=== PATIENT | female | born 1995 | race Caucasian/White ===

== ENCOUNTER 2020-02-09 18:40 | Emergency (ER) | payer MEDICAID, SELFPAY ==
[2020-02-09 18:54] VITALS: BP 128/102; PULSE 109; RESP 19; TEMP 36.8; O2SAT 98; BMI 25.9
[2020-02-09 19:05] VITALS: BP 128/102; PULSE 109; RESP 18; TEMP 36.8; O2SAT 98
--- NOTE | 2020-02-09 19:26 | PC.NURSE ---
Report received. PT is sitting in her room quietly. Waiting for disposition.
[2020-02-09 19:49] LABS: Amphetamine Screen Urine Not Detected (Not Detect); Barbiturates, Urine Not Detected (Not Detect); Benzodiazepines Screen Urine Not Detected (Not Detect); Cannabinoid Screen Urine POSITIVE (Not Detect); Cocaine Screen Urine Not Detected (Not Detect); Opiate Screen Urine POSITIVE (Not Detect); Phencyclidine Screen Urine Not Detected (Not Detect)
[2020-02-09 19:52] LABS: UPreg QC Valid YES; Urine Pregnancy NEGATIVE (NEGATIVE)
--- NOTE | 2020-02-09 20:19 | ED.PSYCH ---
HPI - Psych General Chief Complaint: Psychiatric Symptoms Stated Complaint: CRISIS,+SI NO PLAN Time Seen by Provider: 02/09/20 20:26 Source: patient Mode of arrival: EMS Limitations: no limitations History of Present Illness HPI Narrative: patient was brought in due to making SI statement was arguing with mother. Patient states he made statements of SI at her mother just to get her attention. Patient knew it would upset mother. Patient states she has no plan to kill herself. Patient denies ever trying to kill herself in the past. Patient states he is on methadone and attempted to detox herself. Patient last took methadone 2 days ago. Patient requesting Ativan. Related Data Allergies Allergy/AdvReac Type Severity Reaction Status Date / Time No Known Allergies Allergy Unverified 12/17/19 19:30 [No Known Allergies*] Review of Systems Review of Systems: Yes all other systems are reviewed and are negative Constitutional: Constitutional: Reports as per HPI and Reports no additional constitutional complaints Eyes: Eyes: Reports as per HPI and Reports no additional eye complaints ENT: Reports system reviewed and no additional complaints, except as documented and Reports as per HPI Cardiovascular: Cardiovascular: Reports as per HPI and Reports no additional cardiovascular complaints Respiratory: Respiratory: Reports as per HPI and Reports no additional respiratory complaints Gastrointestinal: Gastrointestinal: Reports as per HPI and Reports no additional gastrointestinal complaints Musculoskeletal: Musculoskeletal: Reports no additional musculoskeletal complaints and Reports as per HPI Neurologic: Reports system reviewed and no additional complaints, except as documented and Reports as per HPI Psychiatric: Psychiatric: Reports no additional psychiatric complaints and Reports as per HPI [facility] Past Medical History Medical History (Updated 02/10/20 @ 00:21 by Background Daemon) Asthma Low thyroid stimulating hormone (TSH) level Social History Social History Alcohol intake: former Smoking Status: Former smoker Smoked in Last 30 Days: No Use of substances other than those prescribed or required for medical reasons: Yes Substance Use Type: Heroin Last Used Substance: Days (ago) Any prior treatment program specific to substance use: Yes Advance Directives: No Advance Directives Information Provided: Yes Physical Exam Vital Signs: Vital Signs: Last Vital Signs Temp 98.3 F 02/09/20 19:05 Pulse 109 H 02/09/20 19:05 Resp 18 02/09/20 19:05 BP 128/102 H 02/09/20 19:05 Pulse Ox 98 02/09/20 19:05 Body Mass Index 25.9 Const: General: cooperative, healthy appearing, comfortable, no acute distress, well developed, alert, awake and Physically active Orientation/consciousness: patient oriented x3 HENMT: Head: Yes normal to inspection and Yes No palpable skull fracture present Eyes: General: appearance normal, both eyes and all related structures Visual Pulido: normal visual pulido by confrontation Neck: Neck: Yes normal visual inspection, Yes full ROM, Yes no lymphadenopathy, Yes no meningeal signs and Yes trachea midline Chest: Chest palpation & inspection: normal inspection of the chest, normal palpation of entire chest wall and no localized rib tenderness Resp: Effort & Inspection: normal respiratory effort and able to speak in complete sentences Auscultation: clear to auscultation bilaterally, no crackles, no rales, no rhonchi, no wheezes and breath sounds present Cardio: Jugular venous distension: no JVD Heart sounds: S1 normal heart sound present and S2 normal heart sound present GI: Inspection: Yes normal to inspection and No abdominal wall ecchymosis Palpation (GI): Soft to palpation, not firm, nontender, no guarding and not rigid : General: No CVA tenderness and Yes no CVA tenderness Back/Spine/Pelvis: Back: no CVA tenderness, No CVA tenderness and No back tenderness Skin: General skin exam: no rashes or lesions noted Trauma: no lacerations or abrasions Neuro: General: patient oriented x3, gait normal, no meningeal signs and CN's II-XI intact bilaterally Cranial nerves: Yes CN's II-XII intact bilaterally Extrem: General: Yes normal to inspection and Yes full ROM Psych: Other: Patient denies any suicidal ideation. Appearance: grossly normal, well kempt and not disheveled Course Course Course Narrative: Patient will be evaluated by Care Team insurance consultant for screening. I do not believe patient is a harm to herself. Willing to U tox and re-evaluate after seen by care team Reevaluation(s) Reevaluation #1: Patient seen by Tatum from physician primary care sports medicine who who evaluated patient. She also agreed that patient is safe to be discharged. She also states patient denies any suicidal or homicidal ideation. She states patient has good follow-up. Patient has appoint with his psychiatrist and therapist this upcoming Saturday and is compliant with her meds. Patient has good support at home. Time: 21:35 MDM - Psych MDM Narrative Medical decision making narrative: emotional outburst. Anxiety Lab Data Labs: Lab Results 02/09/20 02/09/20 Range/Units 19:10 19:10 Urine Test NEGATIVE (NEGATIVE) Urine Opiates Screen POSITIVE H (Not Detect) Ur Barbiturates Screen Not Detected (Not Detect) Ur Phencyclidine Scrn Not Detected (Not Detect) Ur Amphetamines Screen Not Detected (Not Detect) U Benzodiazepines Scrn Not Detected (Not Detect) Urine Cocaine Screen Not Detected (Not Detect) U Marijuana (THC) Screen POSITIVE H (Not Detect) Discharge Plan Discharge Clinical Impression: Anxiety Patient Disposition: Home, Self-Care Instructions: Anxiety (ED) Additional Instructions: return to the ED for any suicidal / homicidal ideation, auditory/visual hallucinations, headache, weakness, dizziness, or any other Concerning symptoms. follow-up with the PCP and psychiatrist Interventions: ED Discharge Assessment Last Done: 02/09/20 21:42 Discharge Date/Time: 02/09/20 21:51 Print Language: Danish
--- NOTE | 2020-02-09 20:30 | MHC.CARE ---
The following is an excerpt from linked CARE team assessment. Please see full assessment for more details: Patient is a 25 year old female seen by CARE team at [facility] room 5. Patient arrived by EMS after making statements during an argument with mother. Patient reports she said she can't take it but that she clarified at the time and since that she is not suicidal. Patient processed the past two days and her frustrations related to withdrawal. Patient was calm and cooperative throughout the assessment. Expressed benefit to being able to speak to a professional. Patient is able to safety plan and reports she stays in her room to avoid conflict with family members. Patient has agreed to reach out to crisis if needed, and in fact did attempt to contact [facility] while her mother was calling the police. Is able to talk about strengths and her motivation for positive change ( I know how to do this ). Patient plans to follow up with new outpatient provider at [facility] in [place], as well as [facility] recovery operator helper. CARE team coordinated with nurse and attending. Plan is for patient to discharge home to follow up with outpatient providers, recovery operator helper, and methadone clinic. Patient verbalized understanding of the plan.
[2020-02-09] MEDS: LORazepam 1 MG TABLET PO (20:34)
== END 2020-02-09 21:51 | disposition home or self-care (01) ==
PROVIDERS: Emergency Provider Emergency Medicine
DX: F41.1 Generalized anxiety disorder (principal); F43.0 Acute stress reaction; R45.851 Suicidal ideations; F11.90 Opioid use, unspecified, uncomplicated; Z87.891 Personal history of nicotine dependence; Z79.899 Other long term (current) drug therapy
CPT/HCPCS: 80307; 81025; 99284

== ENCOUNTER 2020-04-05 05:12 | Emergency (ER) | payer MEDICAID, SELFPAY ==
[2020-04-05 05:37] VITALS: BP 135/95; BP 136/90; PULSE 90; RESP 15; TEMP 36; O2SAT 95; O2SAT 96; BMI 24.5
[2020-04-05 06:27] LABS: MANUAL DIFF FLAG NO
--- NOTE | 2020-04-05 06:27 | PC.NURSE ---
Patient affect is quite labile ranging from totally calm to then very upset/crying. Patient states that she needs help because methadone isn't working and she has been vomiting x 3 days. She missed methadone dose on 04/04/20 and last dose was 04/03/20. Patient last used heroine on Saturday. She is emotionally unstable and believes that no one takes her seriously and that she is very sick. Vital signs are stable with heart rate in the 90's and oxygen [id number] percent on room. Patient room moved to room 19 to make her feel more comfortable.
[2020-04-05 06:30] LABS: Basophils Absolute Auto 0.1 X10*3/uL (0.0-0.2); Basophils Percent Auto 0.3 % (0-2); Eosinophils Absolute Auto 0.1 X10*3/uL (0.0-0.4); Eosinophils Percent Auto 0.4 % (0-4); Hematocrit 53.8 % (37-47); Hemoglobin 17.3 g/dl (12.0-16.0); Imm Gran Abs Auto 0.11 X10*3/uL (0.00-0.03); Imm Gran Pct Auto 0.5 % (0.0-0.4); Lymphocytes Absolute Auto 2.7 X10*3/uL (1.2-4.9); Lymphocytes Percent Auto 12.8 % (20-40); Mean Corpuscular HGB Conc 32.2 g/dl (31.0-35.0); Mean Corpuscular Hemoglobin 30.5 pg (27.0-33.0); Mean Corpuscular Volume 94.7 fL (80-98); Mean Platelet Volume 9.2 fL (9.4-12.3); Monocytes Absolute Auto 1.1 X10*3/uL (0.1-1.2); Monocytes Percent Auto 5.2 % (2-11); Neutrophils Absolute Auto 17.1 X10*3/uL (2.0-8.3); Neutrophils Percent Auto 80.8 % (45-73); Platelet Count 439 X10*3/uL (160-400); Red Blood Count 5.68 X10*6/uL (4.20-5.50); White Blood Count 21.1 X10*3/uL (4.8-10.8)
[2020-04-05 06:32] LABS: Glucose Urine UA NEG (NEG); Leukocyte Esterase Urine NEG (NEG); Nitrite Urine NEG (NEG); PH 5.5 (5.0-8.0); Specific Gravity - Urine >= 1.030 (1.005-1.025); Urine Blood NEG (NEG); Urine Ketones 5 MG/DL (NEG); Urine Protein 1+ MG/DL (NEG-TRACE)
[2020-04-05 06:33] LABS: Appearance Urine CLOUDY; Color Urine AMBER
[2020-04-05 06:34] LABS: UPreg QC Valid YES; Urine Pregnancy NEGATIVE (NEGATIVE)
[2020-04-05 06:40] LABS: Bacteria Urine 4+ /LPF; Mucus Urine 1+ /LPF; RBC Urine 0-2 /HPF (0); Squamous Epithelial Cell Urine 4+ /LPF
[2020-04-05 07:11] LABS: Ethanol < 10 mg/dL
--- NOTE | 2020-04-05 07:26 | ED_ITS ---
HPI - General Adult General Chief complaint: ETOH/Substance Use Stated complaint: substance use Time Seen by Provider: 04/05/20 06:07 Source: patient Mode of arrival: ambulatory History of Present Illness HPI narrative: This is a 25-year-old female presents with stating that she only uses methadone and heroin and states that the last use of these was on Saturday. She denies any alcohol or other substance abuse or dependence. In addition, patient states that over the past 24 hours she has developed nausea and vomiting without fevers/chills and states her LMP was last week. Otherwise, she denies any symptoms. She denies being suicidal or wanting detox. Related Data Previous Rx's Medication Instructions Recorded ondansetron HCl [Zofran] 4 mg PO Q8H PRN #7 tab 04/05/20 Allergies Allergy/AdvReac Type Severity Reaction Status Date / Time No Known Allergies Allergy Unverified 12/17/19 19:30 [No Known Allergies*] Review of Systems Review of Systems: Pertinent positives and negatives as stated in HPI 10 point review systems otherwise negative. PMFSH Past Medical History Source: nursing notes reviewed Medical History Anxiety Asthma Low thyroid stimulating hormone (TSH) level Social History Social History Alcohol intake: former Smoking Status: Smoker, status unknown Use of substances other than those prescribed or required for medical reasons: Yes Substance Use Type: Heroin and Marijuana Substance Use Frequency: Chronic Longstanding Last Used Substance: Days (ago) Any prior treatment program specific to substance use: No Advance Directives: No Physical Exam Vital Signs: Vital Signs: Last Vital Signs Temp 98.2 F 04/05/20 07:36 Pulse 84 04/05/20 07:36 Resp 14 04/05/20 07:36 BP 132/88 04/05/20 07:36 Pulse Ox 96 04/05/20 07:36 Body Mass Index 24.5 VITAL SIGNS: Reviewed. GENERAL: Well developed, well nourished, in no acute distress. HEAD: Normocephalic/atraumatic, NOSE: Nares patent bilateral OROPHARYNX: no oral lesions noted, posterior pharynx clear and non-erythematous without noted tonsillar enlargement/erythema/exudates NECK: Supple, no adenopathy LUNGS: Normal breath sounds. No adventitious sounds or accessory muscle use. SpO2<95> CARDIOVASCULAR: Regular rate and rhythm without noted murmurs, no JVD or lower extremity edema. ABDOMEN: Soft, mildly tender diffuse, non-distended with bowel sounds. No rigidity. No guarding. No palpable masses or hernias noted NEUROLOGIC: Alert and oriented x 4. Strength and sensation to light touch were grossly intact x 4. Course Course Course Narrative: This is a 25-year-old female with history and clinical presentation suggestive of possible gastroenteritis versus withdrawal from heroin, but will rule out , pancreatitis. On review of all investigations test is negative and although there is a significant leukocytosis noted patient is afebrile and suspected to be stress response due to patient's nausea and vomiting. Patient is declining CT scan at this time and wishes to leave. She is otherwise hemodynamically stable, doubt any intra-abdominal pathologies, and will be discharged to pursue admission at [facility] for detox. Medical Decision Making Lab Data Result diagrams: 04/05/20 06:17 04/05/20 06:17 Labs: Lab Results 04/05/20 04/05/20 04/05/20 Range/Units 06:17 06:17 06:17 WBC 21.1 H (4.8-10.8) X10*3/uL RBC 5.68 H (4.20-5.50) X10*6/uL Hgb 17.3 H (12.0-16.0) g/dl Hct 53.8 H (37-47) % MCV 94.7 (80-98) fL MCH 30.5 (27.0-33.0) pg MCHC 32.2 (31.0-35.0) g/dl RDW 14.0 (11.0-16.0) % Plt Count 439 H (160-400) X10*3/uL MPV 9.2 L (9.4-12.3) fL Immature Gran % (Auto) 0.5 H (0.0-0.4) % Neut % (Auto) 80.8 H (45-73) % Lymph % (Auto) 12.8 L (20-40) % Scurry % (Auto) 5.2 (2-11) % Eos % (Auto) 0.4 (0-4) % Baso % (Auto) 0.3 (0-2) % Lymph # (Auto) 2.7 (1.2-4.9) X10*3/uL Scurry # (Auto) 1.1 (0.1-1.2) X10*3/uL Eos # (Auto) 0.1 (0.0-0.4) X10*3/uL Baso # (Auto) 0.1 (0.0-0.2) X10*3/uL Abs Immat Gran (auto) 0.11 H (0.00-0.03) X10*3/uL Absolute Neuts (auto) 17.1 H (2.0-8.3) X10*3/uL Absolute Nucleated RBC 0.000 (0.0-0.012) X10*3/uL Nucleated RBC % (auto) 0.0 (0.0-0.2) /100WBC Urine Color BALTAZAR Urine Appearance CLOUDY Urine pH 5.5 (5.0-8.0) Ur Specific [place] >= 1.030 H (1.005-1.025) Urine Protein 1+ H (NEG-TRACE) MG/DL Urine Glucose (UA) NEG (NEG) MG/DL Urine Ketones 5 (NEG) MG/DL Urine Blood NEG (NEG) Urine Nitrite NEG (NEG) Ur Leukocyte Esterase NEG (NEG) Urine RBC 0-2 (0) /HPF Urine WBC 5-9 H (0-4) /HPF Ur Squamous Epith Cells 4+ /LPF Urine Bacteria 4+ /LPF Urine Mucus 1+ /LPF Urine Test NEGATIVE (NEGATIVE) Ethyl Alcohol mg/dL 04/05/20 Range/Units 06:17 WBC (4.8-10.8) X10*3/uL RBC (4.20-5.50) X10*6/uL Hgb (12.0-16.0) g/dl Hct (37-47) % MCV (80-98) fL MCH (27.0-33.0) pg MCHC (31.0-35.0) g/dl RDW (11.0-16.0) % Plt Count (160-400) X10*3/uL MPV (9.4-12.3) fL Immature Gran % (Auto) (0.0-0.4) % Neut % (Auto) (45-73) % Lymph % (Auto) (20-40) % Scurry % (Auto) (2-11) % Eos % (Auto) (0-4) % Baso % (Auto) (0-2) % Lymph # (Auto) (1.2-4.9) X10*3/uL Scurry # (Auto) (0.1-1.2) X10*3/uL Eos # (Auto) (0.0-0.4) X10*3/uL Baso # (Auto) (0.0-0.2) X10*3/uL Abs Immat Gran (auto) (0.00-0.03) X10*3/uL Absolute Neuts (auto) (2.0-8.3) X10*3/uL Absolute Nucleated RBC (0.0-0.012) X10*3/uL Nucleated RBC % (auto) (0.0-0.2) /100WBC Urine Color Urine Appearance Urine pH (5.0-8.0) Ur Specific [place] (1.005-1.025) Urine Protein (NEG-TRACE) MG/DL Urine Glucose (UA) (NEG) MG/DL Urine Ketones (NEG) MG/DL Urine Blood (NEG) Urine Nitrite (NEG) Ur Leukocyte Esterase (NEG) Urine RBC (0) /HPF Urine WBC (0-4) /HPF Ur Squamous Epith Cells /LPF Urine Bacteria /LPF Urine Mucus /LPF Urine Test (NEGATIVE) Ethyl Alcohol < 10 mg/dL Discharge Plan Discharge Clinical Impression: Nausea & vomiting Qualifiers: Vomiting type: unspecified Vomiting Intractability: non-intractable Qualified Code(s): R11.2 - Nausea with vomiting, unspecified Patient Disposition: Home, Self-Care Instructions: Acute Nausea and Vomiting (ED) Additional Instructions: Please do not hesitate to come back to the emergency department should you develop any worsening of your symptoms. Please continue attempting to contact [facility] for detox. Prescriptions: New ondansetron HCl [Zofran] 4 mg tablet 4 mg PO Q8H PRN (Reason: nausea and vomiting) Qty: 7 RF: 0
[2020-04-05 07:36] VITALS: BP 132/88; PULSE 84; RESP 14; TEMP 36.8; O2SAT 96
[2020-04-05] MEDS: LORazepam 2 MG/ML VIAL 0.5 MG IVPUSH (08:03)
[2020-04-05] MEDS: diphenhydrAMINE HCL 50 MG/ML VIAL 25 MG IVPUSH (08:03)
[2020-04-05] MEDS: Metoclopramide HCl 10 MG/2 ML VIAL IVPUSH (08:03)
[2020-04-05] MEDS: 0.9 % Sodium Chloride 1,000 ML 999 ML IV (08:03)
--- NOTE | 2020-04-05 09:20 | MHC.RECOVSUP ---
Recovery Support note: Patient is a 25 year old Sinhala speaking female who presented to [facility] ED due to nausea and vomiting. Patient reports last taking her Methadone on 04/03 and last using heroin on 04/02. Patient is interested in going to [facility] to get stabilized back on her Methadone. [facility] reports they do not have any female beds at this time. Patient information has been faxed to [facility] and they will reach out to patient directly if a bed opens up. Discussed being referred to other [facility] facilities and patient is not interested at this time, states she will hold out and wait to see if [facility] will have a bed. This field underwriter available as needed.
[2020-04-05 09:48] LABS: Alanine Aminotransferase 18 U/L (0-31); Alkaline Phosphatase 106 U/L (39-117); Anion Gap 24 (12-20); Aspartate Amino Transferase 22 U/L (5-31); Bilirubin Total 0.3 mg/dL (0.0-1.0); Blood Urea Nitrogen 20 mg/dL (9-16); Carbon Dioxide 26 mmol/L (22-29); Chloride 95 mmol/L (96-108); Creatinine Clr Calc Pharmacy 59.6; Estimated Glomerular Filt Rate 55; Glucose Random 133 mg/dL (60-115); Potassium 4.6 mmol/l (3.3-5.1); Sodium 140 mmol/L (135-145); Total Protein 9.9 g/dL (6.5-8.0)
[2020-04-05 10:05] LABS: Amphetamine Screen Urine Not Detected (Not Detect); Barbiturates, Urine Not Detected (Not Detect); Benzodiazepines Screen Urine Not Detected (Not Detect); Cannabinoid Screen Urine POSITIVE (Not Detect); Cocaine Screen Urine Not Detected (Not Detect); Opiate Screen Urine POSITIVE (Not Detect); Phencyclidine Screen Urine Not Detected (Not Detect)
== END 2020-04-05 09:45 | disposition home or self-care (01) ==
PROVIDERS: Emergency Provider Student in an Organized Health Care Education/Training Program
DX: R11.2 Nausea with vomiting, unspecified (principal); F11.90 Opioid use, unspecified, uncomplicated
CPT/HCPCS: 36415; 80053; 80307; 80320; 81001; 81025; 85025; 87086; 96361; 96374; 96375; 99284; 99285; J1200; J2060; J2765

== ENCOUNTER 2020-09-13 21:14 | Emergency (ER) | payer MEDICAID, SELFPAY ==
[2020-09-13 21:19] VITALS: BP 115/82; BP 119/77; PULSE 114; PULSE 119; RESP 20; TEMP 35.9; O2SAT 96; O2SAT 97; BMI 24.5
--- NOTE | 2020-09-13 22:02 | ED_ITS ---
HPI - Anxiety General Chief Complaint: Anxiety Stated Complaint: CRISIS Time Seen by Provider: 09/13/20 21:47 Source: patient Mode of arrival: EMS Limitations: no limitations History of Present Illness HPI narrative: Patient comes to emergency room by EMS. Patient is complaining of anxiety, an withdrawal symptoms from starting Suboxone. Patient states that she has not been able to get a refill for her Ativan, which she gets refilled every 5-8 days. Patient states this afternoon, patient got very upset, was very anxious, had panic attack, her mother called EMS. Patient denies suicidal or homicidal ideation. MD complaint: anxiety Related Data Previous Rx's Medication Instructions Recorded ondansetron HCl [Zofran] 4 mg PO Q8H PRN #7 tab 04/05/20 lorazepam 0.5 mg PO BID PRN #6 tab 09/13/20 Allergies Allergy/AdvReac Type Severity Reaction Status Date / Time No Known Allergies Allergy Unverified 12/17/19 19:30 [No Known Allergies*] Review of Systems Review of Systems: Constitutional : No Weight loss, No Fever, No Chills, No Night Sweats, No Fatigue, No Malaise, feeling shaky ENT/Mouth : No Hearing loss, No Ear Pain, No Nasal Congestion, No Sinus Pain, No Hoarseness, No sore throat, No Rhinorrhea, No Swallowing Difficulty Eyes: No Eye Pain, No Swelling, No Redness, No Foreign Body, No Discharge, No Vision Changes Cardiovascular : No Chest Pain, No SOB, No Dyspnea on Exertion, No Orthopnea, No Edema, No Palpitations Respiratory : No Cough, No Sputum, No Wheezing, No Smoke Exposure, No Dyspnea Gastrointestinal : No Nausea, No Vomiting, No Diarrhea, No Constipation, No abd ominal Pain, No Hematochezia, No Melena Genitourinary : no irregular bleeding, No Dysuria, No Urinary Frequency, No Hematuria, No Urinary Incontinence, No Urgency, No Flank Pain, No Urinary Flow Changes, No Hesitancy Musculoskeletal : No joint pain, No Myalgias, No Joint Swelling Skin : No Skin Lesions, No rash Neuro : No Weakness, No Numbness, No Paresthesias, No Loss of Consciousness, No Dizziness, No Headache Psych : Complaining of anxiety No Depression, No SI/HI/AH/VH, Heme/Lymph: No Bruising, No Bleeding,No Lymphadenopathy Endocrine : No Polyuria, No Polydipsia, No Temperature Intolerance [facility] Past Medical History Medical History Anxiety Asthma Low thyroid stimulating hormone (TSH) level Social History Social History Alcohol intake: former Substance Use Type: Heroin and Marijuana Advance Directives: No Advance Directives Information Provided: Yes Patient : No Physical Exam Vital Signs: Vital Signs: Last Vital Signs Temp 96.7 F L 09/13/20 21:19 Pulse 114 H 09/13/20 21:19 Resp 20 09/13/20 21:19 BP 119/77 09/13/20 21:19 Pulse Ox 97 09/13/20 21:19 Body Mass Index 24.5 Appearance: Alert. Oriented X3. No acute distress. Eyes: Pupils equal, round and reactive to light. ENT: Pharynx normal. Neck: Normal inspection. Neck supple. No lymph nodes noted. No crepitus CVS: Normal heart rate and rhythm. Pulses normal. Normal S1 and S2 Respiratory: No respiratory distress. Breath sounds normal. No Wheezing. No rales Abdomen: Soft and nontender. No rigidity. No distention. good BS x4 Skin: Skin warm and dry. Normal skin color. Normal skin turgor. Extremities: No lower extremity edema. No lower extremity edema. No Lacerations. No Rash Neuro: Oriented X 3. No motor deficit. No sensory deficit. Moving all extermities. No slurred speech. Course Course Course Narrative: I reviewed the mass pad, patient does get refills of lorazepam 0.5 mg 8 tablets at a time, patient is due for a refill. I discussed the plan with the patient, that this time we will give her 1 tablet of Ativan to prevent withdrawal. Patient given 1 tablet of clonidine to help her with mild withdrawal like symptoms from taking Suboxone. Patient denies suicidal homicidal ideation. I discussed with the patient that I will send the prescription to her pharmacy, but she needs to have the refills done by her primary care physician/psychiatrist. Patient agrees with plan Discharge Plan Discharge Clinical Impression: Acute anxiety Patient Disposition: Home, Self-Care Instructions: Anxiety (ED) Additional Instructions: Please follow-up with your primary care physician tomorrow. If you have any worsening or new symptoms, please return to the emergency room or call 911 Prescriptions: New lorazepam 0.5 mg tablet 0.5 mg PO BID PRN (Reason: anxiety) Qty: 6 RF: 0 No Action ondansetron HCl [Zofran] 4 mg tablet 4 mg PO Q8H PRN (Reason: nausea and vomiting) Qty: 7 RF: 0
[2020-09-13 22:42] VITALS: BP 118/85; PULSE 91
[2020-09-13] MEDS: cloNIDine HCL 0.1 MG TABLET PO (22:42)
[2020-09-13] MEDS: LORazepam 1 MG TABLET PO (22:42)
== END 2020-09-13 22:54 | disposition home or self-care (01) ==
PROVIDERS: Emergency Provider Emergency Medicine
DX: F41.9 Anxiety disorder, unspecified (principal); F11.20 Opioid dependence, uncomplicated
CPT/HCPCS: 99283; 99284

== ENCOUNTER 2020-09-29 13:27 | Emergency (ER) | payer MEDICAID, SELFPAY ==
[2020-09-29 13:56] VITALS: BP 116/90; PULSE 111; RESP 17; TEMP 35.7; O2SAT 94; BMI 24.5
[2020-09-29 16:09] LABS: UPreg QC Valid YES; Urine Pregnancy NEGATIVE (NEGATIVE)
--- NOTE | 2020-09-29 16:10 | ED_ITS ---
HPI - Psych General Chief Complaint: Psychiatric Symptoms Stated Complaint: WITHDRAWL Time Seen by Provider: 09/29/20 14:43 Source: patient Mode of arrival: ambulatory Limitations: no limitations History of Present Illness HPI Narrative: 25-year-old female who presents emergency department for evaluation of anxiety and opiate withdrawal. The patient states that she was in a methadone program and then switched to Suboxone. She states that initially she was on 8 mg twice a day and was increased to 12 mg twice a day but this did not help her cravings or withdrawal symptoms. She states she stop taking Suboxone 1 week prior wants to get back into a methadone clinic however the methadone clinic is not able to see your until next week. She states that she is feeling extremely anxious and believes she is withdrawing from opiates. She states that her skin is crawling and itching, she is feeling weak and fatigued. She denies suicidal or homicidal ideation. She would like to talk to a counselor about getting into detox and about treating her anxiety. Patient states that she last used intranasal heroin 2 days prior and she used 2 bags heroin. Related Data Previous Rx's Medication Instructions Recorded ondansetron HCl [Zofran] 4 mg PO Q8H PRN #7 tab 04/05/20 lorazepam 0.5 mg PO BID PRN #6 tab 09/13/20 Allergies Allergy/AdvReac Type Severity Reaction Status Date / Time No Known Allergies Allergy Unverified 12/17/19 19:30 [No Known Allergies*] Review of Systems Review of Systems: Yes all other systems are reviewed and are negative [facility] Past Medical History [facility] Narrative: Past medical history: asthma, anxiety, opiate abuse. Social history: She smokes 1-1/2 pack of cigarettes per day, she denies alcohol use, she states that she has used intranasal heroin and has abused benzodiazepines as well. Medical History Anxiety Asthma Low thyroid stimulating hormone (TSH) level Social History Social History Alcohol intake: former Patient Tobacco Use Status: Former Tobacco user Substance Use Type: Heroin and Marijuana Advance Directives: Yes Advance Directives Information Provided: No Advance Directives on File: No Patient : No Physical Exam Vital Signs: Vital Signs: Last Vital Signs Temp 96.3 F L 09/29/20 13:56 Pulse 111 H 09/29/20 13:56 Resp 17 09/29/20 13:56 BP 116/90 H 09/29/20 13:56 Pulse Ox 94 09/29/20 13:56 Body Mass Index 24.5 Const: Other: Very anxious appearing female, obvious pyeloerection, appears to be withdrawing from opiates. Oriented to person and place. General: cooperative and healthy appearing Orientation/consciousness: oriented to person and oriented to place Limitations: no limitations HENMT: Head: Yes normal to inspection, Yes normocephalic and Yes atraumatic Ears: external ears normal General nose exam: Normal external nose present Face and sinus: Yes normal facial exam Mouth: Normal oral and palatal mucosa present Throat: Yes posterior oropharynx normal Eyes: Periorbital: periorbital findings normal Eyelids: Yes eyelids normal Conjunctivae: conjunctivae normal Sclerae: sclerae normal Corneas: corneas normal Pupils: Equal, round and reactive pupils present Direct Ophthalmoscopy: normal light reflex Neck: Neck: Yes full ROM, Yes no lymphadenopathy, Yes no meningeal signs, Yes trachea midline and Yes supple Chest: Chest palpation & inspection: normal inspection of the chest and normal palpation of entire chest wall Resp: Effort & Inspection: normal respiratory effort and able to speak in complete sentences Auscultation: clear to auscultation bilaterally Cardio: Rate: regular rate Rhythm: regular rhythm Heart sounds: S1 normal heart sound present, S2 normal heart sound present and no murmurs GI: Inspection: Yes normal to inspection Palpation (GI): Soft to palpation, nontender, no guarding, not rigid and No hepatosplenomegaly present : General: Yes no CVA tenderness Back/Spine/Pelvis: Back: no CVA tenderness Cervical Spine: normal cervical lordosis Thoracic/Lumbar Spine: thoracic and lumbar spine normal to inspection Skin: Other: Pyloerection/ goosebumps on arms and legs Neuro: General: oriented to person, oriented to place and no meningeal signs Cranial nerves: Yes CN's II-XII intact bilaterally and Yes Equal, round and reactive pupils present Cognition (Neuro): normal cognition Motor exam (neuro): 5/5 motor strength present throughout Extrem: General: Yes normal to inspection and Yes full ROM Psych: Appearance: well kempt Mental Status: mental status grossly normal Speech and movement: Normal speech and movement present Affect: Anxious affect present Attitude: cooperative Thought content: Normal thought content present, suicidality and no homicidality Course Course Course Narrative: 25-year-old female with a history of opiate and benzo abuse and anxiety who presents emergency department for evaluation of opiate withdrawal and anxiety. Patient does appear to be in opiate withdrawal. She also appears to be very anxious. She denied suicidal homicidal ideation. The patient will be treated with Ativan 2 mg orally. I will obtain a care team to help the patient get into detox and possibly restarting her Suboxone. 17 20: The patient was seen by are [employer] source operations specialist, nurse practitioner Jewell Serrato. Apparently the patient was given 2 weeks of Suboxone and the patient sold her Suboxone medications. At this point, the patient was given information of outpatient resources and the option to go to a walk-in appointment tomorrow for starting methadone. The patient will be discharged home. MDM - Psych Lab Data Labs: Lab Results 09/29/20 09/29/20 Range/Units 15:58 15:58 Urine Test NEGATIVE (NEGATIVE) Urine Opiates Screen POSITIVE H (Not Detect) Ur Barbiturates Screen Not Detected (Not Detect) Ur Phencyclidine Scrn Not Detected (Not Detect) Ur Amphetamines Screen Not Detected (Not Detect) U Benzodiazepines Scrn Not Detected (Not Detect) Urine Cocaine Screen Not Detected (Not Detect) U Marijuana (THC) Screen POSITIVE H (Not Detect) Discharge Plan Discharge Clinical Impression: Opiate withdrawal, Anxiety Patient Disposition: Home, Self-Care Additional Instructions: Follow-up with the outpatient plan as discussed with you by our Addiction/care team specialist. Prescriptions: No Action ondansetron HCl [Zofran] 4 mg tablet 4 mg PO Q8H PRN (Reason: nausea and vomiting) Qty: 7 RF: 0 lorazepam 0.5 mg tablet 0.5 mg PO BID PRN (Reason: anxiety) Qty: 6 RF: 0
[2020-09-29] MEDS: LORazepam 1 MG TABLET 2 MG PO (16:14)
[2020-09-29 16:33] LABS: Amphetamine Screen Urine Not Detected (Not Detect); Barbiturates, Urine Not Detected (Not Detect); Benzodiazepines Screen Urine Not Detected (Not Detect); Cannabinoid Screen Urine POSITIVE (Not Detect); Cocaine Screen Urine Not Detected (Not Detect); Opiate Screen Urine POSITIVE (Not Detect); Phencyclidine Screen Urine Not Detected (Not Detect)
--- NOTE | 2020-09-29 17:00 | MHC.RECOVRN ---
RN contacted t/w to speak with pt regarding MOUD. T/w met with pt in [facility] . Pt reports withdrawal symptoms, restless, nauseous, anxious. Pt reports intermittent heroin use, last use Saturday, 2 bags, [place]. Pt reports recently receiving methadone through [facility] on [address] Pt reports last dose around 08/25, 110 mg. Since last dose, pt had been transitioned to Suboxone at the same location. Pts last prescription filled on 09/21 for a 14 day supply. Pt reports these were sold and pt wishes to return to methadone. Pt does not want to take Suboxone due to fear of precipitated withdrawal. Pt denies SI/HI/AH/VH. Pt educated regarding [facility] on [address] in [place], specifically walk in hours on //. Pt agreeable to walk in tomorrow, 09/30. Case discussed with Jewell Serrato APRN.
== END 2020-09-29 17:36 | disposition home or self-care (01) ==
PROVIDERS: Emergency Provider Emergency Medicine Emergency Medical Services; PCP Family Medicine
DX: F11.23 Opioid dependence with withdrawal (principal); F41.9 Anxiety disorder, unspecified; F17.210 Nicotine dependence, cigarettes, uncomplicated; Z79.899 Other long term (current) drug therapy
CPT/HCPCS: 80307; 81025; 99284

== ENCOUNTER 2020-10-10 02:33 | Emergency (ER) | payer MEDICAID, SELFPAY ==
[2020-10-10 02:39] VITALS: RESP 16; BMI 23.8
--- NOTE | 2020-10-10 02:43 | ED.GENADULT ---
HPI - General Adult General Stated complaint: anxiety Time Seen by Provider: 10/10/20 02:42 Source: patient Mode of arrival: EMS Limitations: no limitations History of Present Illness HPI narrative: Patient comes emergency room complaining of anxiety. Patient states she was sleeping, her mother walked into her room, patient freaked out, the patient states that her mother over reacted to the patient's anxiety, called police department, EMS brought the patient to emergency room. Patient denies chest pain, no shortness of breath, complaining of anxiety. Patient denies suicidal or homicidal ideations. Per EMS, the patient's mother found bottles of unknown medications, seems that the mother is concerned that the patient is abusing benzodiazepines. Related Data Previous Rx's Medication Instructions Recorded ondansetron HCl [Zofran] 4 mg PO Q8H PRN #7 tab 04/05/20 lorazepam 0.5 mg PO BID PRN #6 tab 09/13/20 hydroxyzine HCl 25 mg PO TID PRN #10 tab 10/10/20 Allergies Allergy/AdvReac Type Severity Reaction Status Date / Time No Known Allergies Allergy Verified 10/10/20 02:38 [No Known Allergies*] Review of Systems Review of Systems: Constitutional : No Weight loss, No Fever, No Chills, No Night Sweats, No Fatigue, No Malaise ENT/Mouth : No Hearing loss, No Ear Pain, No Nasal Congestion, No Sinus Pain, No Hoarseness, No sore throat, No Rhinorrhea, No Swallowing Difficulty Eyes: No Eye Pain, No Swelling, No Redness, No Foreign Body, No Discharge, No Vision Changes Cardiovascular : No Chest Pain, No SOB, No Dyspnea on Exertion, No Orthopnea, No Edema, No Palpitations Respiratory : No Cough, No Sputum, No Wheezing, No Smoke Exposure, No Dyspnea Gastrointestinal : No Nausea, No Vomiting, No Diarrhea, No Constipation, No abdominal Pain, No Hematochezia, No Melena Genitourinary : no irregular bleeding, No Dysuria, No Urinary Frequency, No Hematuria, No Urinary Incontinence, No Urgency, No Flank Pain, No Urinary Flow Changes, No Hesitancy Musculoskeletal : No joint pain, No Myalgias, No Joint Swelling Skin : No Skin Lesions, No rash Neuro : No Weakness, No Numbness, No Paresthesias, No Loss of Consciousness, No Dizziness, No Headache Psych : Complaining of anxiety, No Depression, No SI/HI/AH/VH, No Social Issues, Heme/Lymph: No Bruising, No Bleeding,No Lymphadenopathy Endocrine : No Polyuria, No Polydipsia, No Temperature Intolerance PMF Past Medical History Medical History Anxiety Asthma Low thyroid stimulating hormone (TSH) level Social History Social History Alcohol intake: former Patient Tobacco Use Status: Former Tobacco user Substance Use Type: Heroin and Marijuana Physical Exam Vital Signs: Appearance: Alert. Oriented X3. No acute distress. Does not seem anxious at this time Eyes: Pupils equal, round and reactive to light. ENT: Pharynx normal. Neck: Normal inspection. Neck supple. No lymph nodes noted. No crepitus CVS: Normal heart rate and rhythm. Pulses normal. Normal S1 and S2 Respiratory: No respiratory distress. Breath sounds normal. No Wheezing. No rales Abdomen: Soft and nontender. No rigidity. No distention. good BS x4 Skin: Skin warm and dry. Normal skin color. Normal skin turgor. Extremities: No lower extremity edema. No Lacerations. No Rash Neuro: Oriented X 3. No motor deficit. No sensory deficit. Moving all extermities. No slurred speech. Course Course Course Narrative: Patient is not anxious, does not have an acute panic attack. Patient up for hydroxyzine. Patient states that she wants Ativan. I discussed with the patient that at this time it is not indicated, patient got upset, refused EKG and walked out of the room Discharge Plan Discharge Clinical Impression: Anxiety Patient Disposition: Elopement Instructions: Anxiety (ED) Additional Instructions: Please follow-up with your primary care physician tomorrow. If you have any worsening or new symptoms, please return to the emergency room or call 911 Prescriptions: New hydroxyzine HCl 25 mg tablet 25 mg PO TID PRN (Reason: nausea and vomiting) Qty: 10 RF: 0 No Action ondansetron HCl [Zofran] 4 mg tablet 4 mg PO Q8H PRN (Reason: nausea and vomiting) Qty: 7 RF: 0 lorazepam 0.5 mg tablet 0.5 mg PO BID PRN (Reason: anxiety) Qty: 6 RF: 0
--- NOTE | 2020-10-10 02:49 | PC.NURSE ---
Dr Fox informed pt that she would order medication for pt's stress and would like an EKG done prior to DC. Pt agreeable. Dr Fox exits room and pt asks this RN if she is being prescribed ativan and being sent home with a 4 day supply of ativan. This RN informs pt that she is currently not ordered for ativan and that this RN is unsure if she will receive an ativan script upon DC. Pt grows agitated, states that she thought [facility] would be better than this. Pt calls her mother and asks for a ride home, states this bitch isn't doing anything for me so I'm leaving. Pt refuses vitals, refuses EKG, refuses meds and elopes. Dr Fox made aware.
== END 2020-10-10 03:38 | disposition left against medical advice (07) ==
LOC: HO.ED 03:30
PROVIDERS: Emergency Provider Emergency Medicine
DX: F41.9 Anxiety disorder, unspecified (principal); Z87.891 Personal history of nicotine dependence; Z79.899 Other long term (current) drug therapy
CPT/HCPCS: 99283